=== PATIENT | female | born 1935 | race Caucasian/White ===

== ENCOUNTER → 2020-10-14 14:41 | Outpatient (CLI) | payer MEDICARE, BC, SELFPAY | PROVIDERS: Family Provider Internal Medicine; PCP Internal Medicine; Referring Provider Internal Medicine; Visit Provider Internal Medicine | DX: M85.851 Other specified disorders of bone density and structure, right thigh (principal); Z78.0 Asymptomatic menopausal state; Z87.891 Personal history of nicotine dependence | CPT/HCPCS: 77080 ==

== ENCOUNTER → 2023-10-11 15:39 | Outpatient (CLI) | payer MEDICARE, OTHER, SELFPAY ==
--- NOTE | 2023-10-11 15:44 | DI.RAD.S_ITS ---
PROCEDURE: XR HIP W PEL IF DONE RT 2V INDICATIONS: Pain in right hip TECHNIQUE: 2 views of the hip were acquired. COMPARISON: None. FINDINGS: Bones: Severe right hip joint space narrowing with flattening the femoral head subchondral cysts and sclerosis. Moderate to severe arthritic changes on the right. Soft tissues: No suspicious soft tissue calcifications or masses. IMPRESSION: Severe right hip osteoarthritis with remodeling Approved by: Mike Nagel M.D. on 10/12/2023 at 17:02
== END ==
LOC: RAD 15:42
PROVIDERS: PCP Internal Medicine; Referring Provider Internal Medicine; Visit Provider Internal Medicine
DX: M25.551 Pain in right hip (principal); M16.11 Unilateral primary osteoarthritis, right hip
CPT/HCPCS: 73502